=== PATIENT | male | born 1945 | race Caucasian/White ===

== ENCOUNTER 2016-07-21 10:05 | Outpatient (CLI) | payer MEDICARE, OTHER | END 2016-07-21 10:06 | disposition home or self-care (01) | DX: G47.33 Obstructive sleep apnea (adult) (pediatric) (principal) | CPT/HCPCS: 99213; G0463 ==

== ENCOUNTER 2017-09-07 10:12 | Outpatient (CLI) | payer MEDICARE, OTHER | END 2017-09-07 10:13 | disposition home or self-care (01) | LOC: SC 10:12 | PROVIDERS: ATTEND Internal Medicine Pulmonary Disease | DX: G47.33 Obstructive sleep apnea (adult) (pediatric) (principal) | CPT/HCPCS: 99213; G0463; 99212 ==

== ENCOUNTER 2021-04-10 09:59 | Outpatient (CLI) | payer MEDICARE, OTHER ==
[2021-04-10 10:54] VITALS: BP 141/88
--- NOTE | 2021-04-10 10:54 | SLEEP CARE CONSULTATION ---
Information from patient questionnaire entered by Trista Mcintyre. I have reviewed and concur with the information entered by Trista Mcintyre. This document represents the service I personally performed and the decisions made by me, Krystle Ponce ARNP. History of Present Illness Service Date and Time: 04/10/2021 0959 Reason for Visit: New patient, Previously diagnosed sleep apnea (mild obstructive, AHI 9.9, [facility]), Re-establish care Chief Complaint: reports: Snoring, Observed pauses in breathing, Frequent awakenings at night Date of Onset: 5 years Usual bedtime: 2200 Time it takes to fall asleep: under 20 minutes Snores at night: Yes (low volume) Observed to quit breathing while asleep: Yes Sleeps alone due to snoring: No Number of times waking at night: 3-5 Reasons for waking at night: reports: Bathroom, Other (unknown reason) Toss, Turn, or Twitch while sleeping: Yes (limited) Recalls having dreams: Yes (on occasion) Usually gets out of bed at: 0730 Feels refreshed in the morning: Yes Morning headache: No Sleepy or fatigued during the day: Yes (on occasion) Ever fallen asleep while driving: No Takes day naps: No Dreams during day naps: No Prior sleep studies: Yes Year and Where: 2015 [facility] Type of Sleep Study: Polysomnography Additional HPI information: ILSA DIAZ was previously diagnosed to have mild, AHI 9.9, obstructive sleep apnea-hypopnea syndrome in 2016 and comes in today with spouse to re- establish care. Patient last seen in 2018 and was on CPAP therapy. He is not currently using his CPAP. He stopped using the machine because he was getting bursts of air from him machine that would wake him up. He felt it was waking him up as much as he had been before without the CPAP. He is complaining today of frequent night awakenings, sometimes snores and observed pauses in breathing. His will hear him gasp in his sleep. He does not always feel rested in the mornings, he describes it as a 5-6/10 scale on average. He takes about 20-30 minutes to fall asleep. He comes back now because he goes to bathroom from 3-6 times a night. He normally will fall back to sleep quickly. He does have an enlarged prostate. He was recently re-seen by his urologist and they told him it may be more caused by his sleep apnea and was referred here. - Parasomnia Symptoms Ever been unable to move upon waking from sleep: No Walks in sleep: No Talks in sleep: No (*rare occasions) Ever acted out dreams in sleep: No Ever felt weak in the knees when startled or emotional: No Bothered by creepy, crawly, restless sensations in legs: No Problems with memory or concentration: Yes (both, hard to concentrate) Subjective Initial [place] Sleepiness Scale score: 8 (in 2020) Past Medical History Past Medical History: reports: Arthritis, Hypothyroidism, GERD (patient is on a feeding tube since 2006; stage 4 throat cancer/had rad/chemo/surgery), Other (autonomic neuropathy (manifested in low blood pressure), Swallow problems (result of radiation for stage 4 cancer), Open heart surgery (mitrovalve repair > medicines), enlarged prostate (medicines in the past - alpha blockers)) Social History The patient's occupation is a RE. Patient is Unknown and lives in [place]. Have you smoked in the past 12 months: No Alcohol use: Yes Alcohol amount and frequency: 1 glass of wine, 5 days/week Caffeine use: Yes Caffeine amount and frequency: 1 cup/day, early afternoon Family History Family history of sleep disordered breathing: Yes Family Hx Sleep Apnea: Father: Snoring Allergies and Home Medications Drug allergies reviewed: Yes (NKDA) Home medication list reviewed: Yes Allergy and home medication list: Levothyroxine low-dose aspirin Famotidine Vit D3 Review of Systems Weight loss over past 5 years: 8 post surgery Cardiovascular: reports: other (no heart problems today; march 08, 2019 surgery). denies: high blood pressure Gastrointestinal: reports: difficulty swallowing Urinary: reports: frequency, urgency Neurological: reports: gait or balance problems (*balance on occasion). denies: headaches Ear/Nose/Throat: reports: dry mouth/throat, tonsillectomy, wisdom teeth removed Endocrine: reports: thyroid disease (secondary to cancer treatment), too hot or cold (*cold extremities), increased urination Musculoskeletal: reports: joint pain (knees), back pain (lower back) Immunologic: reports: sneezing Physical Exam Vital signs obtained and entered by: Krystle, SAP ABAP DEVELOPER Blood Pressure: 141/88 (left arm) Cuff size: long Heart Rate: 68 O2 Saturation: 99 Height: 5 ft 10 in Weight: 143 lb Body Mass Index: 20.5 BMI Classification: Healthy weight Heart: regular rate and rhythm Lungs: clear bilaterally Impression and Plan 1. Suspected Obstructive Sleep Apnea-Hypopnea Syndrome, as previously diagnosed and as suggested by a history of irregular snoring, observed cessation of breath while asleep, gasping or choking in sleep, frequent awakening during the night, some unrefreshed sleep, and cognitive impairment. Patient is here to see if he still has sleep apnea and if so what treatments are necessary. I recommend proceeding to polysomnography to confirm the diagnosis and to assess severity. I obtained agreement to proceed. The pathophysiology of obstructive sleep apnea- hypopnea syndrome was discussed with the patient and health risks of cardiovascular and cerebrovascular disease if not treated. Risks of drowsy driving discussed in detail and patient advised to avoid long distance driving and to tack puller machine at the first sign of drowsiness. Patient agreed to plan. * Schedule polysomnography +- manual CPAP titration study and return in 1-2 week s after the study to discuss result and initiate therapy. * Avoid long distance driving or driving when feeling sleepy. * Avoid alcohol, sedative and muscle relaxant around bedtime. * Maintain a healthy weight. * Review instructions provided by trained office staff on how to prepare for the sleep study. * Return for follow-up after sleep study completed. Counseling Topics: Weight control Visit Type: In Office Time Spent with Patient (minutes): 47 Provider Statement: I spent 100% of the Face to Face Visit with the patient with greater than 50% spent counseling the patient and coordination of care.
== END 2021-04-10 10:00 | disposition home or self-care (01) ==
LOC: SC 09:59
PROVIDERS: ATTEND Nurse Practitioner Family
DX: G47.33 Obstructive sleep apnea (adult) (pediatric) (principal)
CPT/HCPCS: 99203; G0463; 99212

== ENCOUNTER 2021-04-11 12:26 | Outpatient (CLI) | payer MEDICARE, OTHER | END 2021-04-11 12:27 | disposition home or self-care (01) | LOC: SC 12:26 | PROVIDERS: ATTEND Nurse Practitioner Family | DX: G47.33 Obstructive sleep apnea (adult) (pediatric) (principal); R09.02 Hypoxemia | CPT/HCPCS: G0399 ×2; 95806 ==

== ENCOUNTER 2021-05-01 14:19 | Outpatient (CLI) | payer MEDICARE, OTHER ==
[2021-05-01 15:10] VITALS: BP 130/76
--- NOTE | 2021-05-01 15:10 | SLEEP CARE CONSULTATION ---
Information from patient questionnaire entered by Tonny Ferguson MA. I have reviewed and concur with the information entered by Tonny Ferguson MA. This document represents the service I personally performed and the decisions made by , Krystle Ponce ARNP. History of Present Illness Service Date and Time: 05/01/2021 1419 Initial [place] Sleepiness Scale score: 8 (in 2020) Additional HPI information: ILSA DIAZ returns with spouse for follow up and results of the recently performed home sleep study. I explained the pathophysiology behind obstructive sleep apnea. We then spent quite a bit of time discussing different treatment options. For mild obstructive sleep apnea, surgery and oral appliance are alternatives to nasal CPAP therapy but in moderate or severe cases, nasal CPAP is the most effective and reliable treatment. Because apnea is primarily in supine position, then positional management therapy could be effective. Methods discussed such as positioning with pillows to prevent supine sleep. I reviewed the impact of weight changes on sleep apnea and strongly recommended losing weight. After some discussion, the patient opted to go with the nasal CPAP therapy. Nasal autoCPAP set at 4-15 cmH20 will be ordered with rationale explained. A manual titration study will be ordered if unable to find optimal pressure with office adjustments. I explained how CPAP machine works with sample device [employer]ar[employer] [id number] and what to expect when using the machine. Using CPAP every night in order to get used to it was emphasized. Patient advised to put CPAP mask on before getting into bed so as not to fall asleep without CPAP. If the mask given is uncomfortable or is difficult to keep on through the night even with adjustment, contact the CPAP supplier as many will replace with another mask style if notified before 30 days. If snoring or perceives is not getting enough air or too much air from the machine, notify this office. AASM patient education PAP tips reviewed and given to patient. Patient counseled not drink alcohol less than 4 hours before bedtime as it can increase snoring and apnea. Patient was cautioned about risks of drowsy driving until sleepiness symptoms resolve. Sleep Study - Results Type of Sleep Study: Polysomnography Prior sleep studies: Yes Year and Where: 2015 [facility] Polysomnography/Home Sleep Study results: Physician Impression: The quality of the study is good. The length of the study is adequate (> 240 minutes). Please also see the tabulated and graphic data. 1. Obstructive Sleep Apnea-Hypopnea (ICD-10 G47.33), severe, with an AHI of 32.6/hr and yadira SaO2 of 53%. During the study, the patient had 207 apneas (207 obstructive, 0 central, 0 mixed) and 11 hypopneas. The longest episode lasted 222.5 seconds. The respiratory events occurred more frequently during supine sleep (supine AHI was 32.8 and non-supine, 17.14). 2. Hypoxemia (ICD-10 R09.02), severe, with the lowest oxygen saturation of 53 % and 62.3 minutes with SaO2 under 90%. Baseline oxygen saturation was normal (Average oxygen saturation was 93%). Physical Exam Vital signs obtained and entered by: HILDA CENTENO Blood Pressure: 130/76 (right ) Cuff size: wrist Heart Rate: 78 O2 Saturation: 95 Height: 5 ft 10 in Weight: 143 lb (with clothes) Body Mass Index: 20.5 BMI Classification: Healthy weight Impression and Plan 1. Obstructive Sleep Apnea-Hypopnea Syndrome, severe, with lowest oxygen saturation of 53%. Obviously this is the cause of the patients symptoms of unrefreshed sleep, and excessive daytime sleepiness. Positive pressure therapy could benefit cardiac disease and gastric reflux. As mentioned above, the patient will be started on nasal autoCPAP therapy with pressure set at 4-15 cmH2 O. A manual titration study will be completed if unable to find optimal treatment pressure with office adjustments. Compliance guidelines also reviewed. A copy of compliance guidelines will be given for reference at check out. [place] se the apnea is more severe supine, I instructed to avoid sleeping supine using pillow positioning until able to start CPAP use. Patient is leaving for [place] in about 1.5 weeks. I will order the new CPAP urgently to see if we can get his set up before he leaves. He does have an old machine that he got in 2016 but he states it is on the recall list. He may be willing to use this one for next 3 mo nths in [place] if it is not showing any signs of black debris from foam breakdown. He will follow up one month after restarting CPAP therapy. 2. Hypoxemia, severe, with the lowest oxygen saturation of 53 % and 62.3 minutes with SaO2 under 90%. His baseline oxygen saturation was normal with an average oxygen saturation of 93%. * Nasal auto CPAP therapy, pressure at 4-15 cm H2O. * Attempt to lose weight. * Avoid alcohol consumption near bedtime. * Avoid supine sleep until using CPAP. * The patient is again cautioned about driving until sleepiness completely resolves. * Return one month after CPAP obtained. I will assess response to therapy and compliance at that time. Counseling Topics: Weight control Visit Type: In Office Time Spent with Patient (minutes): 27 Provider Statement: I spent 100% of the Face to Face Visit with the patient with greater than 50% spent counseling the patient and coordination of care.
== END 2021-05-01 14:20 | disposition home or self-care (01) ==
LOC: SC 14:19
PROVIDERS: ATTEND Nurse Practitioner Family
DX: G47.33 Obstructive sleep apnea (adult) (pediatric) (principal); R09.02 Hypoxemia
CPT/HCPCS: 99213; G0463; 99212

== ENCOUNTER 2021-11-26 09:54 | Outpatient (CLI) | payer MEDICARE, OTHER ==
[2021-11-26 11:19] VITALS: BP 112/76
--- NOTE | 2021-11-26 11:19 | SLEEP CARE CONSULTATION ---
Information from patient questionnaire entered by Tonny Yusuf MA. I have reviewed and concur with the information entered by Tonny Yusuf MA. This document represents the service I personally performed and the decisions made by , Krystle Ponce ARNP. History of Present Illness Service Date and Time: 11/26/2021 0954 Previous diagnosis: Severe, Obstructive Sleep Apnea-Hypopnea Syndrome AHI: 32.6 (in 2020) Reason for follow up: first compliance ([place] 10/14/2021, [facility]BI, ), first compliance after device update Accompanied by: Spouse Equipment type: CPAP Equipment obtained from: Other ([facility]; getting supplies) Mask style: Full face Mask brand: [employer] (Vitera) Backup mask available: Yes (old mask) Last cushion change: 1 month Prior sleep studies: Yes Year and Where: 2015 [facility] Type of Sleep Study: Polysomnography HPI additional information: ILSA DIAZ was diagnosed to have severe, AHI 32.6, obstructive sleep apnea- hypopnea syndrome and returned today for CPAP therapy first compliance after updating device follow-up. Sleep Study - Results Type of Sleep Study: Polysomnography Prior sleep studies: Yes Year and Where: 2015 [facility] CPAP Compliance Data - Data Reviewed with Patient Average duration of nightly device use: 6 hours 16 minutes Compliance rate %: 74.5 (55 days; 42/55 days used) Current pressure setting (cmH2O): 4-15 (mean 7.3, avg 11.7) Average residual AHI: 16.0 Central apnea: 3.6 Average large leak: 0 Subjective Patient concerns: reports: dry mouth, nose, throat, other (too high pressures at times). denies: aerophagia, mask discomfort, air blowing in eyes, mask leak noise, condensation in mask/hose, nasal congestion, epistaxis Observed to snore while using device: No Current pressure setting perceived as: too high On therapy, patient: reports: other (he has low energy and is tired during the day per his ) Initial [place] Sleepiness Scale score: 8 (in 2020) Current [place] Sleepiness Scale score: 5 (11/26/2021) Allergies and Home Medications Home medication list reviewed: Yes (stopped Famotadine; started a statin) Review of Systems Review of systems same as previous: No (Feeding tube removed) Physical Exam Vital signs obtained and entered by: Magnolia YUSUF CMA AAMO Blood Pressure: 112/76 (RESP 16, PULSE 71, LEFT, ) Heart Rate: 69 O2 Saturation: 96 (N95) Height: 5 ft 10 in Weight: 163 lb 8 oz Body Mass Index: 23.4 BMI Classification: Healthy weight Impression and Plan 1. Obstructive Sleep Apnea-Hypopnea Syndrome, severe, with good treatment compli ance and fair apnea control with elevated residual AHI at 16.0. On CPAP therapy, the patient has better sleep quality and is more rested overall. Patient states he has the same problem with this machine that he had last one. About 6 hours after started using the CPAP, he will wake up to the high pressure in his mask. He will just take it off and sleep for the rest of the night. He feels the pre ssure is too high but after reviewing his therapy report his AHI is elevated. The patients pressure will be changed to autoCPAP 11-14 cmH20 for elevation of residual AHI. Patient advised to contact me if pressure change is uncomfortable so that it can be adjusted. Goals for apnea control discussed. Patient's apnea severity and rationale for treatment to reduce apnea, improve sleep quality and reduce cardiovascular and cerebrovascular events was reviewed. I also reviewed the benefit of consistent device use of CPAP for cardiac disease and gastric reflux. * Change auto CPAP pressure to 11-14 cmH2O * Notify me if snoring with mask or feeling that the pressure is too much or too little * Call this office if any problems using CPAP * Return for follow up in 1-2 months, or sooner if concerns arise Counseling Topics: Spare mask Visit Type: In Office Other Participants: Spouse/Significant Other Time Spent with Patient (minutes): 26 Provider Statement: I spent 100% of the Face to Face Visit with the patient with greater than 50% spent counseling the patient and coordination of care.
== END 2021-11-26 09:55 | disposition home or self-care (01) ==
LOC: SC 09:54
PROVIDERS: ATTEND Nurse Practitioner Family
DX: G47.33 Obstructive sleep apnea (adult) (pediatric) (principal)
CPT/HCPCS: 99213; G0463; 99212

== ENCOUNTER 2021-12-25 10:47 | Outpatient (CLI) | payer MEDICARE, OTHER ==
[2021-12-25 11:48] VITALS: BP 119/71
--- NOTE | 2021-12-25 11:48 | SLEEP CARE CONSULTATION ---
Information from patient questionnaire entered by Tonny Ferguson MA. I have reviewed and concur with the information entered by Tonny Ferguson MA. This document represents the service I personally performed and the decisions made by me, Krystle Ponce ARNP. History of Present Illness Service Date and Time: 12/25/2021 1047 Previous diagnosis: Severe, Obstructive Sleep Apnea-Hypopnea Syndrome AHI: 32.6 (in 2020) Reason for follow up: one month (MICHELLE, PRESSURE CHANGE?, [place] 10/03/2021, CALLED PT TO BRING MACHINE, ) Accompanied by: Spouse Equipment type: CPAP Equipment obtained from: Other ([facility]; getting supplies) Mask style: Full face Mask brand: [employer] (Vitera) Backup mask available: Yes (old mask) Last cushion change: 2 weeks Prior sleep studies: Yes Year and Where: 2015 [facility] Type of Sleep Study: Polysomnography HPI additional information: ILSA DIAZ was diagnosed to have severe, AHI 32.6, obstructive sleep apnea- hypopnea syndrome and returned today with spouse for CPAP therapy one month with pressure change follow-up. Sleep Study - Results Type of Sleep Study: Polysomnography Prior sleep studies: Yes Year and Where: 2015 [facility] CPAP Compliance Data - Data Reviewed with Patient Average duration of nightly device use: 6 hours 9 minutes Compliance rate %: 66.7 (90 days) Current pressure setting (cmH2O): 11-14 Average residual AHI: 15.4 Central apnea: 3.4 Average large leak: 0 Compliance data discussion: Some of his data is not being recorded by his Michelle device. This is affecting how his compliance is recorded. He states he is using his CPAP every night. He says his application on his phone is not syncing with his CPAP. Subjective Patient concerns: reports: mask leak noise (waking him up when pressure is elevated, 2-3 times a night), dry mouth, nose, throat (little bit of dry mouth). denies: aerophagia, mask discomfort, air blowing in eyes, condensation in mask/hose, nasal congestion, epistaxis, other Observed to snore while using device: No Current pressure setting perceived as: comfortable On therapy, patient: reports: other (machine still wakes him up 2-3 times a night, not sure he is sleeping better). denies: drowsiness while driving Initial [place] Sleepiness Scale score: 8 (in 2020) Current [place] Sleepiness Scale score: 4 Allergies and Home Medications Home medication list reviewed: Yes (no changes) Review of Systems Review of systems same as previous: Yes (no changes) Physical Exam Vital signs obtained and entered by: HILDA CENTENO Blood Pressure: 119/71 (RESP 18, PULSE 68, LEFT) Heart Rate: 68 O2 Saturation: 97 (WITH MASK) Height: 5 ft 10 in Weight: 143 lb Body Mass Index: 20.5 BMI Classification: Healthy weight Impression and Plan 1. Obstructive Sleep Apnea-Hypopnea Syndrome, severe, with good treatment compliance and good apnea control. On CPAP therapy, the patient has better sleep quality and is more rested overall. Patient states he is still waking up from the pressure going so high 2 or 3 times a night. He will hit the ramp button and the pressure will go down and he will able to go back to sleep but he feels this is still interrupting his sleep. His will hear the machine ramping up really high as she becomes concerned and will wake him up. We were unable to get a full download from his [email or web address] and he cannot get his apps on the phone to connect or seek with his [employer] either. Concern blood pressure is still waking him up although his AHI is elevated still and he does need more pressure. I discussed with his not waking him up to see if it will level out but she says it makes her nervous and also keeps her awake so she will wake him up. I will write to have the Michelle serviced to make sure is communicating correctly his data and also that the pressure is working appropriately. Unfortunately patient is leaving on Thursday for an extended stay in [place]. I am not sure if he will be able to get serviced before he leaves.I will have one of the office staff call his DME to see if this is a possibility. We will communicate with him once we know. I will not make any pressure adjustments at this time because patient does not want his pressure increased. Patient's apnea severity and rationale for treatment to reduce apnea, improve sleep quality and reduce cardiovascular and cerebrovascular events was reviewed. I also reviewed the benefit of consistent device use of CPAP for cardiac disease and gastric reflux. * Continue auto CPAP pressure at 11-14 cmH2O * Service machine * Notify me if snoring with mask or feeling that the pressure is too much or too little * Attempt to lose weight * Call this office if any problems using CPAP * Return for follow up in 3 months, or sooner if concerns arise Counseling Topics: Spare mask Visit Type: In Office Other Participants: Spouse/Significant Other Time Spent with Patient (minutes): 25 Provider Statement: I spent 100% of the Face to Face Visit with the patient with greater than 50% spent counseling the patient and coordination of care.
== END 2021-12-25 10:48 | disposition home or self-care (01) ==
LOC: SC 10:47
PROVIDERS: ATTEND Nurse Practitioner Family
DX: G47.33 Obstructive sleep apnea (adult) (pediatric) (principal)
CPT/HCPCS: 99213; G0463; 99212

== ENCOUNTER 2022-05-01 11:06 | Outpatient (CLI) | payer MEDICARE, OTHER ==
[2022-05-01 11:57] VITALS: BP 138/80
--- NOTE | 2022-05-01 11:57 | SLEEP CARE CONSULTATION ---
Information from patient questionnaire entered by Anmol Guillen. I have reviewed and concur with the information entered by Anmol Guillen. This document represents the service I personally performed and the decisions made by me, Krystle Ponce ARNP. History of Present Illness Service Date and Time: 05/01/2022 1106 Previous diagnosis: Severe, Obstructive Sleep Apnea-Hypopnea Syndrome AHI: 32.6 (in 2020) Reason for follow up: other (2 MONTH F/U ) Equipment type: CPAP (ABBI) Equipment obtained from: Other ([facility]; getting supplies) Mask style: Full face Mask brand: Pinshape & Nexstim (Vitera) Backup mask available: Yes (old masks) Last cushion change: 1 month Prior sleep studies: Yes Year and Where: 2015 [facility] Type of Sleep Study: Polysomnography HPI additional information: ILSA DIAZ was diagnosed to have severe, AHI 32.6, obstructive sleep apnea- hypopnea syndrome and returned today for CPAP therapy two month follow-up. Sleep Study - Results Type of Sleep Study: Polysomnography Prior sleep studies: Yes Year and Where: 2015 [facility] CPAP Compliance Data - Data Reviewed with Patient Average duration of nightly device use: 6 HOURS, 43 MINS Compliance rate %: 93.3 (02-01-2022 to 05-01-2022; 86/90 days used) Current pressure setting (cmH2O): 11-14 (avg 12.4) Average residual AHI: 7.2 Central apnea: 1.5 Average large leak: 0 mins Subjective Missed days of use due to: reports: travel, other (only missed 3 nights since 10/14/21) Patient concerns: reports: mask discomfort (some leaking of mask when ramping up), dry mouth, nose, throat. denies: aerophagia, air blowing in eyes, mask leak noise, condensation in mask/hose, nasal congestion, epistaxis Current pressure setting perceived as: too high (? to comfortable) On therapy, patient: reports: more rested overall, other (more comfortable with machine). denies: drowsiness while driving Initial [place] Sleepiness Scale score: 8 (in 2020) Current [place] Sleepiness Scale score: 4 (05/01/22) Allergies and Home Medications Drug allergies reviewed: Yes (NKDA) Home medication list reviewed: Yes (no changes) Review of Systems Review of systems same as previous: Yes (no changes) Physical Exam Vital signs obtained and entered by: IRAIS MEYERS Blood Pressure: 138/80 (left arm) Cuff size: regular Heart Rate: 71 O2 Saturation: 100 Height: 5 ft 10 in Weight: 142 lb Body Mass Index: 20.3 BMI Classification: Normal Impression and Plan 1. Obstructive Sleep Apnea-Hypopnea Syndrome, severe, with good treatment compliance and fair apnea control with slightly elevated AHI. On CPAP therapy, the patient is more rested overall. He feels he is getting more used to the CPAP. The patients pressure will be changed to autoCPAP 12-14 cmH20 for elevation of residual AHI. Patient advised to contact me if pressure change is uncomfortable so that it can be adjusted. Goals for apnea control discussed. Patient's apnea severity and rationale for treatment to reduce apnea, improve sleep quality and reduce cardiovascular and cerebrovascular events was reviewed. I also reviewed the benefit of consistent device use of CPAP for cardiac disease and gastric reflux. Patient will be leaving town at end of May and will be back in August. We will have him come in at that time to see how he is doing. He voiced agreement. * Change auto CPAP pressure to 12-14 cmH2O * Notify me if snoring with mask or feeling that the pressure is too much or too little * Call this office if any problems using CPAP * Return for follow up in 6 months, or sooner if concerns arise Counseling Topics: Spare mask Visit Type: In Office Time Spent with Patient (minutes): 23 Provider Statement: I spent 100% of the Face to Face Visit with the patient with greater than 50% spent counseling the patient and coordination of care.
== END 2022-05-01 11:07 | disposition home or self-care (01) ==
LOC: SC 11:06
PROVIDERS: ATTEND Nurse Practitioner Family
DX: G47.33 Obstructive sleep apnea (adult) (pediatric) (principal)
CPT/HCPCS: 99213; G0463; 99212

== ENCOUNTER 2022-09-12 10:42 | Outpatient (CLI) | payer MEDICARE, OTHER ==
[2022-09-12 11:33] VITALS: BP 140/90
--- NOTE | 2022-09-12 11:33 | SLEEP CARE CONSULTATION ---
Information from patient questionnaire entered by Daylin Ni. I have reviewed and concur with the information entered by Daylin Ni. This document represents the service I personally performed and the decisions made by me, Krystle Ponce ARNP. History of Present Illness Service Date and Time: 09/12/2022 1042 Previous diagnosis: Severe, Obstructive Sleep Apnea-Hypopnea Syndrome AHI: 32.6 (in 2020) Reason for follow up: other (4 MONTH F/U ) Accompanied by: Spouse Equipment type: CPAP (ABBI) Equipment obtained from: Other ([facility]; getting supplies) Mask style: Full face Mask brand: Esparza & NG Advantage (Vitera) Backup mask available: Yes (old mask) Last cushion change: month Prior sleep studies: Yes Year and Where: 2015 [facility] Type of Sleep Study: Polysomnography HPI additional information: ILSA DIAZ was diagnosed to have severe, AHI 32.6, obstructive sleep apnea- hypopnea syndrome and returned today for CPAP therapy four month follow-up. Sleep Study - Results Type of Sleep Study: Polysomnography Prior sleep studies: Yes Year and Where: 2015 [facility] CPAP Compliance Data - Data Reviewed with Patient Average duration of nightly device use: 5 hours Compliance rate %: 94 (47/50 days used; 07/23/2022-09/11/2022) Current pressure setting (cmH2O): 12-14 (95% - 13.0) Average residual AHI: 8.8 Average large leak: 14.7 lpm Compliance data discussion: Compliance data pulled from machine and Christopher on phone that patient had and agreed to share with me. Subjective Missed days of use due to: reports: travel Patient concerns: reports: aerophagia (mild a few days a week; has other bloating issues during the day due to food), mask discomfort, mask leak noise, dry mouth, nose, throat. denies: air blowing in eyes, condensation in mask/hose, nasal congestion, epistaxis Observed to snore while using device: No Current pressure setting perceived as: comfortable On therapy, patient: reports: sleeping better, awakening more refreshed, more rested overall. denies: drowsiness while driving Initial [place] Sleepiness Scale score: 8 (in 2020) Current [place] Sleepiness Scale score: 4 (04/21/23) Allergies and Home Medications Known drug allergies: No Drug allergies reviewed: Yes Home medication list reviewed: Yes (no changes) Review of Systems Review of systems same as previous: Yes (no changes) Physical Exam Vital signs obtained and entered by: DAYLIN Yun MA Blood Pressure: 140/90 (LEFT ARM) Cuff size: regular Heart Rate: 78 O2 Saturation: 99 Height: 5 ft 10 in Weight: 145 lb 3.2 oz Body Mass Index: 20.8 BMI Classification: Normal Impression and Plan 1. Obstructive Sleep Apnea-Hypopnea Syndrome, severe, with good treatment compliance and fair apnea control with elevated residual AHI. On CPAP therapy, the patient has better sleep quality and is more rested overall. [] Patient's apnea severity and rationale for treatment to reduce apnea, improve sleep quality and reduce cardiovascular and cerebrovascular events was reviewed. I also reviewed the benefit of consistent device use of [CPAP] for [cardiac disease and gastric reflux]. * Continue[ auto] CPAP pressure at [12-14] cmH2O * Mask refitting for full face mask * Titration study * Notify me if snoring with mask or feeling that the pressure is too much or too little * Call this office if any problems using CPAP * Return for follow up after study, or sooner if concerns arise Counseling Topics: Spare mask Visit Type: In Office Time Spent with Patient (minutes): 23 Provider Statement: I spent 100% of the Face to Face Visit with the patient with greater than 50% spent counseling the patient and coordination of care.
== END 2022-09-12 10:43 | disposition home or self-care (01) ==
LOC: SC 10:42
PROVIDERS: ATTEND Nurse Practitioner Family
DX: G47.33 Obstructive sleep apnea (adult) (pediatric) (principal)
CPT/HCPCS: 99213; G0463; 99212

== ENCOUNTER 2023-09-24 09:58 | Outpatient (CLI) | payer MEDICARE, OTHER ==
--- NOTE | 2023-09-24 10:31 | Sleep Patient Instructions ---
Sleep Center Visit Summary - Patient Visit Information Reason for Visit: Annual follow-up - Patient Instructions Additional Instructions: You will continue with CPAP therapy with pressure changed to 12-14 cmH2O. A supply prescription will be updated with your DME. You will be completing a titration sleep study in our sleep lab where you will be sleeping with the CPAP machine on and we will be adjusting your pressures to find your optimal pressure settings. Once we have your results back, we will call you and schedule a follow up to go over the results, you may contact us with any questions or issues as needed. - Clinic Information Contact: [facility] [address] [place] [address] [email or web address] T: [phone]
--- NOTE | 2023-09-24 10:42 | SLEEP CARE CONSULTATION ---
Information from patient questionnaire entered by Daylin Ni. I have reviewed and concur with the information entered by Daylin Ni. This document represents the service I personally performed and the decisions made by me, Krystle Ponce ARNP. History of Present Illness Service Date and Time: 09/24/2023 0958 Previous diagnosis: Severe, Obstructive Sleep Apnea-Hypopnea Syndrome AHI: 32.6 (in 2020) Reason for follow up: annual (LAST SEEN 04/15/24) Accompanied by: Spouse (Armida) Equipment type: CPAP (MICHELLE II AutoCPAP) Equipment obtained from: Other ([facility]; getting supplies) Mask style: Full face Mask brand: [employer] (Kary Full) Backup mask available: Yes Last cushion change: 3-4 weeks Prior sleep studies: Yes Year and Where: 2015 [facility] Type of Sleep Study: Polysomnography HPI additional information: ILSA DIAZ was diagnosed to have severe, AHI 32.6, obstructive sleep apnea- hypopnea syndrome and returned today for CPAP therapy annual follow-up. Sleep Study - Results Type of Sleep Study: Polysomnography Prior sleep studies: Yes Year and Where: 2015 [facility] CPAP Compliance Data - Data Reviewed with Patient Average duration of nightly device use: 6 hours 9 minutes Compliance rate %: 84.1 (317/365 days used) Current pressure setting (cmH2O): 5-20 (95%, 12.8) Average residual AHI: 7.8 Central apnea: 3.7 Obstructive apnea: 6.1 Hypopnea: 1.5 Average large leak: 2 mins Subjective Missed days of use due to: reports: travel ( and machine "acting up") Patient concerns: reports: mask leak noise, dry mouth, nose, throat (not constant). denies: aerophagia, mask discomfort, air blowing in eyes, condensation in mask/hose, nasal congestion, epistaxis Observed to snore while using device: No Current pressure setting perceived as: comfortable On therapy, patient: reports: sleeping better, more rested overall. denies: drowsiness while driving Initial [place] Sleepiness Scale score: 8 (in 2020) Current [place] Sleepiness Scale score: 3 Allergies and Home Medications Known drug allergies: No Drug allergies reviewed: Yes Home medication list reviewed: Yes (no changes) Review of Systems Review of systems same as previous: Yes (NO CHANGE) Physical Exam Vital signs obtained and entered by: DAYLIN Yun MA Blood Pressure: 143/95 (LEFT ARM) Cuff size: regular Heart Rate: 67 O2 Saturation: 99 Height: 5 ft 10 in Weight: 146 lb Body Mass Index: 20.9 BMI Classification: Normal Impression and Plan 1. Obstructive Sleep Apnea-Hypopnea Syndrome, severe, with good treatment compliance and fair apnea control with elevated residual AHI. On CPAP therapy, the patient has had some better sleep quality and feels rested overall. However, he has other health issues that he feels keep him fatigued. He was having trouble with his CPAP, it was noisy, and he saw his [employer] company who checked the machine and ended up swapping it out for a different Michelle II. He has been able to use the machine more comfortably with the change. He average residual is still elevated at 7.9 and I will reorder the titration study to try to find optimal pressure setting for BRANDEN control. I advised patient that a titration study will be next step to determine a more optimal pressure setting. They voiced understanding and agreement. I will update supply prescription. His pressure should have been 12-14 cmH2O but it appears with the change in machine the settings were not adjusted to this setting. I will have it readjusted to the 12-14 cmH2O on his machine. Patient's apnea severity and rationale for treatment to reduce apnea, improve sleep quality and reduce cardiovascular and cerebrovascular events was reviewed. I also reviewed the benefit of consistent device use of CPAP for cardiac disease, gastric reflux. * Continue auto CPAP pressure at 12-14 cmH2O * Titration study * Update supply prescription * Notify me if snoring with mask or feeling that the pressure is too much or too little * Call this office if any problems using CPAP * Return for follow up after titration study, or sooner if concerns arise Counseling Topics: Spare mask Prescriptions: Device supplies Follow up with Sleep Care in: other (after titration study) Plan: Titration study and followup Visit Type: In Office Time Spent with Patient (minutes): 36 Provider Statement: I spent 100% of the Face to Face Visit with the patient with greater than 50% spent counseling the patient and coordination of care.
[2023-09-24 10:48] VITALS: BP 143/95; O2SAT 99
== END 2023-09-24 09:59 | disposition home or self-care (01) ==
LOC: SC 09:58
PROVIDERS: ATTEND Nurse Practitioner Family
DX: G47.33 Obstructive sleep apnea (adult) (pediatric) (principal)
CPT/HCPCS: 99213; G0463; 99212

== ENCOUNTER 2023-11-03 20:35 | Outpatient (CLI) | payer MEDICARE, OTHER | END 2023-11-03 20:36 | disposition home or self-care (01) | LOC: SC 20:35 | PROVIDERS: ATTEND Nurse Practitioner Family | DX: G47.33 Obstructive sleep apnea (adult) (pediatric) (principal); G47.61 Periodic limb movement disorder; I49.9 Cardiac arrhythmia, unspecified | CPT/HCPCS: 95811 ==

== ENCOUNTER 2023-12-04 13:21 | Outpatient (CLI) | payer MEDICARE, OTHER ==
--- NOTE | 2023-12-04 13:53 | Sleep Patient Instructions ---
Sleep Center Visit Summary - Patient Visit Information Reason for Visit: Titration study follow-up - Patient Instructions Additional Instructions: You were here for follow up titration study. You will be continued on CPAP therapy with pressure at 5-10 cmH2O. Please let us know if the pressure change is uncomfortable and we can make further adjustments of the pressure. You should follow up with sleep care in 3 months. You may contact us sooner for any questions or concerns. - Clinic Information Contact: [facility] [address] [place] [address] [email or web address] T: [phone]
--- NOTE | 2023-12-04 13:56 | SLEEP CARE CONSULTATION ---
Information from patient questionnaire entered by Daylin Ni. I have reviewed and concur with the information entered by Daylin Ni. This document represents the service I personally performed and the decisions made by , Krystle Ponce ARNP. History of Present Illness Service Date and Time: 12/04/2023 1321 Accompanied by: Spouse (Armida) Initial [place] Sleepiness Scale score: 8 (in 2020) Current [place] Sleepiness Scale score: 5 (12/04/23) Additional HPI information: ILSA DIAZ returns for follow up of a manual CPAP titration study performed on 11/03/2023. Previous study done in 2020 showed severe obstructive sleep apnea with AHI 32.6. The patient was informed of the following polysomnography findings: CPAP was initiated at 6 cmH2O and titrated up to CPAP at 18 cmH2O. CPAP at 8 cmH2O appeared to be optimal (AHI of 0 per hour on the pressure). There was supine REM sleep on the pressure. Oxygen saturation was mildly low due to residual respiratory events mostly on higher pressures. The patient appeared to have tolerated positive airway pressure therapy fairly well. There was severe periodic leg movement of sleep not contributing to the sleep fragmentation. Cardiac rhythm could not be differentiated between sinus with frequent premature atrial contractions and atrial flutter. Patient will continue with CPAP therapy with Auto CPAP settings adjusted to 5-10 cmH2O. Sleep Study - Results Type of Sleep Study: Polysomnography (COMPLETED 11/03/23) Prior sleep studies: Yes Year and Where: 2015 [facility] Polysomnography/Home Sleep Study results: IMPRESSION: The quality of the study is good. CPAP was initiated at 6 cmH2O and titrated up to CPAP at 18 cmH2O. CPAP at 8 cmH2O appeared to be optimal (AHI of 0 per hour on the pressure). There was supine REM sleep on the pressure. Oxygen saturation was mildly low due to residual resp iratory events mostly on higher pressures. The patient appeared to have tolerated positive airway pressure therapy fairly well. The patients sleep efficiency was reduced due to several prolonged awakenings during the night. The sleep architecture was abnormal for sleep fragmentation and reduced amount of time spent in slow wave sleep (N3). There was severe periodic leg movement of sleep not contributing to the sleep fragmentation. Cardiac rhythm cannot be differentiated between sinus with frequent premature atrial contractions and atrial flutter. No abnormal behavior (parasomnia) observed during the night. CONCLUSIONS and RECOMMENDATIONS: 1. Obstructive sleep apnea-hypopnea (ICD-10 G47.33), severe (AHI was 32.6 by an home sleep apnea test 3 years ago), adequately controlled with CPAP at 8 cmH2O. CPAP therapy is, therefore, recommended at the pressure setting. AutoCPAP set between 5 and 10 cmH20 is also appropriate. Mask used was a Esparza & Pay[employer] Eson nasal mask size large. 2. 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 Clinical correlation advised. 3. Cardiac arrythmia. Recommend further workup and treatment as appropriate. Allergies and Home Medications Known drug allergies: No Drug allergies reviewed: Yes Home medication list reviewed: Yes (Eliquis) Allergy and home medication list: Allergies No Known Drug Allergies Allergy (Verified 12/02/23 13:52) Review of Systems Review of systems same as previous: No (ATRIAL FIBRILLATION ) Physical Exam Vital signs obtained and entered by: DAYLIN Yun MA Blood Pressure: 156/99 (RIGHT ARM) Cuff size: ADLT SMALL Heart Rate: 65 O2 Saturation: 98 Height: 5 ft 10 in Weight: 141 lb 9.6 oz Weight change since last visit: 5 lb loss Body Mass Index: 20.2 BMI Classification: Normal Impression and Plan 1. Obstructive Sleep Apnea-Hypopnea Syndrome, severe, with lowest oxygen saturation of 85%. He returns to office after titration study to find optimal pressure to control his sleep apnea. Continue to use of positive pressure therapy could benefit cardiac disease and gastric reflux. His optimal pressure noted and sleep study was 8 cmH2O and APAP pressure 5-10 cmH2O would also be appropriate. The patient will be continued on nasal autoCPAP therapy with pressure set at 5-10 cmH2O. I will have him follow-up in 1 to 2 months to recheck response to change in pressures. Patient agreed with plan of care. 2. Periodic limb movement, severe, that did not fragment patients sleep. Periodic limb movement of sleep (PLMS) is characterized by episodes of repetitive limb movements that occur during sleep and usually involve the lower limbs. The etiology is unknown. Patient was advised that no treatment is needed at this time. If symptoms increase, then further evaluation is indicated. 3. Cardiac arrhythmia. Ilsa does have a history of heart disease. He was noted in sleep study to have a cardiac arrhythmia. He was advised to follow-up with his architectural wood model maker as needed for further evaluation of this finding and treatment as appropriate. * Change auto CPAP pressure to 5-10 cmH2O * Follow up with PCP for severe PLMs * Follow up with Cardiology for cardiac arrhythmia * Notify me if snoring with mask or feeling that the pressure is too much or too little * Call this office if any problems using CPAP * Return for follow up in 3 months, or sooner if concerns arise Follow up with Sleep Care in: 3 months Follow up with: PCP, Business Intelligence Architect Follow up recommended for: PLMS, Cardiac arrhythmia Visit Type: In Office Time Spent with Patient (minutes): 21 Provider Statement: I spent 100% of the Face to Face Visit with the patient with greater than 50% spent counseling the patient and coordination of care.
[2023-12-04 14:03] VITALS: BP 156/99; O2SAT 98
== END 2023-12-04 13:22 | disposition home or self-care (01) ==
LOC: SC 13:21
PROVIDERS: ATTEND Nurse Practitioner Family
DX: G47.33 Obstructive sleep apnea (adult) (pediatric) (principal); G47.61 Periodic limb movement disorder; I49.9 Cardiac arrhythmia, unspecified
CPT/HCPCS: 99213; G0463; 99212